=== PATIENT | male | born 1995 | race Caucasian/White ===

== ENCOUNTER 2020-05-03 13:45 | Emergency (ER) | payer SELFPAY ==
[2020-05-03 13:47] VITALS: BP 151/79; PULSE 75; RESP 16; TEMP 36.9; O2SAT 98; BMI 26.6
== END 2020-05-03 18:37 | disposition left against medical advice (07) ==
LOC: HO.ED 18:35
PROVIDERS: Emergency Provider Emergency Medicine
DX: R10.9 Unspecified abdominal pain (principal)
CPT/HCPCS: 99281; 99282

== ENCOUNTER 2021-11-17 10:52 | Emergency (ER) | payer SELFPAY ==
--- NOTE | ~2021-11-17 | XR_ITS ---
EXAMINATION: PORTABLE CHEST 1 VIEW CLINICAL INFORMATION: SOB . COMPARISON: No recent pertinent prior studies are available for comparison. TECHNIQUE: Portable frontal view of the chest was obtained. FINDINGS: The lungs are mildly hypoexpanded. No focal infiltrate, effusion, edema, or pneumothorax. Cardiac and mediastinal silhouettes are within normal limits for technique. No acute bony abnormality seen. XR/XR chest 1V IMPRESSION: No evidence of acute disease.
--- NOTE | ~2021-11-17 | CT_ITS ---
EXAMINATION: CT HEAD WITHOUT CONTRAST CLINICAL INFORMATION: Headache and dizziness COMPARISON: None TECHNIQUE: Contiguous axial imaging was performed from the skull base to vertex without intravenous administration of contrast. This CT examination was performed using dose optimization techniques as appropriate, variously including the following: *Automated exposure control *Adjustment of mA and/or kV according to patient size (this includes techniques or standardized protocols for targeted exams where dose is matched to indication/reason for exam; i.e. extremities or head) *Use of iterative reconstruction technique DLP: 687 mGy-cm FINDINGS: There is no evidence of acute intracranial hemorrhage or territorial infarction. No abnormal mass effect or midline shift is seen. Villegas to white matter differentiation is well preserved. No extra-axial fluid collections are identified. The ventricles are normal in size. There is no abnormal attenuation within the brain parenchyma. The osseous structures and soft tissues are normal. The mastoid air cells and visualized portions of the paranasal sinuses are well aerated. CT/CT head/brain wo con IMPRESSION: No acute intracranial hemorrhage or edematous large vessel territorial infarction..
--- NOTE | 2021-11-17 10:54 | ECG_ITS ---
Test Reason : chest pain Blood Pressure : / mmHG Vent. Rate : 065 BPM Atrial Rate : 065 BPM P-R Int : 148 ms QRS Dur : 086 ms QT Int : 400 ms P-R-T Axes : 040 050 023 degrees QTc Int : 416 ms Normal sinus rhythm with sinus arrhythmia Normal ECG No previous ECGs available Referred By: Generic ED Physician Electronically Signed By:REYMUNDO ARGUETA
[2021-11-17 10:57] VITALS: BP 143/89; PULSE 66; RESP 18; TEMP 37; O2SAT 100; BMI 29.0
[2021-11-17 11:10] LABS: MANUAL DIFF FLAG NO
[2021-11-17 11:13] LABS: Basophils Absolute Auto 0.1 X10*3/uL (0.0-0.2); Basophils Percent Auto 0.9 % (0-2); Eosinophils Absolute Auto 0.4 X10*3/uL (0.0-0.4); Eosinophils Percent Auto 6.5 % (0-4); Hematocrit 42.9 % (42.0-52.0); Hemoglobin 14.9 g/dl (14.0-18.0); Imm Gran Abs Auto 0.01 X10*3/uL (0.00-0.03); Imm Gran Pct Auto 0.2 % (0.0-0.4); Lymphocytes Absolute Auto 2.5 X10*3/uL (1.2-4.9); Lymphocytes Percent Auto 46.6 % (20-40); Mean Corpuscular HGB Conc 34.7 g/dl (31.0-36.0); Mean Corpuscular Hemoglobin 31.4 pg (27.0-33.0); Mean Corpuscular Volume 90.3 fL (80.0-98.0); Mean Platelet Volume 11.2 fL (9.4-12.4); Monocytes Absolute Auto 0.4 X10*3/uL (0.1-1.2); Monocytes Percent Auto 6.7 % (2-11); Neutrophils Absolute Auto 2.1 x10*3/uL (2.0-8.3); Neutrophils Percent Auto 39.1 % (45-73); Platelet Count 162 X10*3/uL (160-400); Red Blood Count 4.75 X10*6/uL (4.60-5.80); Red Cell Distribution Width 12.3 % (11.0-16.0); White Blood Count 5.4 X10*3/uL (4.8-10.8)
[2021-11-17 11:28] LABS: Alanine Aminotransferase 15 U/L (0-40); Albumin Level 4.2 g/dL (3.5-5.0); Alkaline Phosphatase 78 U/L (39-117); Anion Gap 9 (12-20); Aspartate Amino Transferase 18 U/L (5-37); Bilirubin Total 0.7 mg/dL (0.0-1.0); Blood Urea Nitrogen 11 mg/dL (9-16); Calcium 8.7 mg/dL (8.4-10.2); Carbon Dioxide 25 mmol/L (22-29); Chloride 108 mmol/L (96-108); Estimated Glomerular Filt Rate > 60; Glucose Random 98 mg/dL (60-115); Potassium 3.9 mmol/L (3.3-5.1); Sodium 138 mmol/L (135-145); Total Protein 6.9 g/dL (6.5-8.0)
[2021-11-17 11:30] LABS: Troponin-I High Sensitivity < 3.5 ng/L (<3.5-35.0)
[2021-11-17 16:28] VITALS: BP 135/91; PULSE 54; RESP 18; TEMP 36.9; O2SAT 99
--- NOTE | 2021-11-17 17:45 | ED_ITS ---
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 Patient feel dizziness (room spinning around him) also been complaining of frontal headache that started 5 days ago, the dizziness is worsening with changing position or moving his head from side to side, no chest pain. Patient also been having shortness of breath with no coughing, no recent travel, no lower extremity swelling or tenderness. No sick contacts, patient was outside in the sun and hot weather yesterday. Related Data Previous Rx's Medication Instructions Recorded amoxicillin 500 mg-potassium 1 tab PO BID #20 tabs 11/17/21 clavulanate 125 mg tablet (Augmentin) prednisone 20 mg tablet 20 mg PO BID #10 tabs 11/17/21 Allergies Allergy/AdvReac Type Severity Reaction Status Date / Time No Known Allergies Allergy Verified 05/03/20 13:50 Review of Systems Review of Systems: All other systems are reviewed and are negative Constitutional: Reports as per HPI and Reports no additional constitutional complaints Eyes: Reports as per HPI and Reports no additional eye complaints Reports system reviewed and no additional complaints, except as documented Cardiovascular: Reports as per HPI and Reports no additional cardiovascular complaints Respiratory: Reports as per HPI and Reports no additional respiratory complaints Gastrointestinal: Reports as per HPI and Reports no additional gastrointestinal complaints Genitourinary: Reports no additional female genitourinary complaints Musculoskeletal: Reports no additional musculoskeletal complaints Skin/Breast: Reports system reviewed and no additional complaints, except as docu Psychiatric: Reports no additional psychiatric complaints Endocrine: Reports no additional endocrine complaints Hematologic/Lymphatic: Reports no additional hematologic/lymphatic complaints Allergic/Immunologic: Reports no additional allergic/immunologic complaints Reports system reviewed and no additional complaints, except as documented and Reports Abnormal speech present Physical Exam ED Vital Signs: Vital Signs - 24 hr 11/17/21 10:57 11/17/21 16:28 Temperature 98.6 F 98.5 F Pulse Rate 66 54 Respiratory Rate 18 18 Blood Pressure 143/89 H 135/91 H Pulse Oximetry 100 99 Oxygen Delivery Method Room Air BMI result Body Mass Index 29.0 Vital signs have been reviewed as appeared to be correct. Blood pressure normal. Heart rate normal. Respiration rate normal. Temperature normal. Oxygen saturation normal. Appearance: Alert. Oriented X3. No acute distress. Head: Normal external exam. Normocephalic. Atraumatic. No Tyler signs noted. No raccoon eyes noted Eyes: PERRLA. EOMI. Conjunctiva and sclera normal. Eyelids normal. ENT: TM's Normal. Pharynx normal. Uvula midline. Left frontal sinus tenderness to percussion. Dry mucous membranes. No trismus noted. No drooling noted. No muffled voice noted. Neck: Normal inspection. Neck supple. FROM. No adenopathy. Thyroid Normal. No meningeal signs. No neck mass noted. CVS: Normal heart rate and rhythm. Heart sound normal. No murmurs noted. Pulses normal throughout. Respiratory: No respiratory distress. Painless inspiration. Breath sounds normal. No wheezes/rales/rhonchi noted. Chest nontender. No accessory muscle usage noted or decreased air movement noted. Abdomen: Soft and nontender. Bowel sounds normal in all 4 quadrants. No distention noted. No organomegaly noted. No visible injury noted. Back: No CVA tenderness. Full range of motion noted. Skin: Skin warm and dry. Normal skin color. Normal skin turgor. No rashes/lesions/lacerations noted. Extremities: No lower extremity edema. Extremities exhibit normal range of motion. Extremities nontender. Neuro: Oriented X 3. Cranial nerve exam: II-XII are grossly intact No motor deficit. No sensory deficit. Reflexes normal. Course Course Course Narrative: 26-year-old male came in for evaluation of 5 days of headache and being dizzy, patient was exposed to sun and extreme hot weather for a whole day yesterday. Physical exam is consistent with acute left frontal sinusitis will start the patient on Augmentin and short course of prednisone. And encouraged to drink plenty of fluids. Medical Decision Making Lab Data Lab results reviewed: Yes I reviewed the patient's lab results. Result diagrams: 11/17/21 11:07 11/17/21 11:07 Labs: Lab Results 11/17/21 11/17/21 11/17/21 Range/Units 11:07 11:07 11:07 WBC 5.4 (4.8-10.8) X10*3/uL RBC 4.75 (4.60-5.80) X10*6/uL Hgb 14.9 (14.0-18.0) g/dl Hct 42.9 (42.0-52.0) % MCV 90.3 (80.0-98.0) fL MCH 31.4 (27.0-33.0) pg MCHC 34.7 (31.0-36.0) g/dl RDW 12.3 (11.0-16.0) % Plt Count 162 (160-400) X10*3/uL MPV 11.2 (9.4-12.4) fL Immature Gran % (Auto) 0.2 (0.0-0.4) % Neut % (Auto) 39.1 L (45-73) % Lymph % (Auto) 46.6 H (20-40) % Hall % (Auto) 6.7 (2-11) % Eos % (Auto) 6.5 H (0-4) % Baso % (Auto) 0.9 (0-2) % Lymph # (Auto) 2.5 (1.2-4.9) X10*3/uL Hall # (Auto) 0.4 (0.1-1.2) X10*3/uL Eos # (Auto) 0.4 (0.0-0.4) X10*3/uL Baso # (Auto) 0.1 (0.0-0.2) X10*3/uL Abs Immat Gran (auto) 0.01 (0.00-0.03) X10*3/uL Absolute Neuts (auto) 2.1 (2.0-8.3) x10*3/uL Absolute Nucleated RBC 0.000 (0.0-0.012) X10*3/uL Nucleated RBC % (auto) 0.0 (0.0-0.2) /100WBC D-Dimer High Sensitivty NG/ML Sodium 138 (135-145) mmol/L Potassium 3.9 (3.3-5.1) mmol/L Chloride 108 (96-108) mmol/L Carbon Dioxide 25 (22-29) mmol/L Anion Gap 9 L (12-20) BUN 11 (9-16) mg/dL Creatinine 0.97 (0.5-1.4) mg/dL Estim Creat Clear Calc 108.0 Estimated GFR > 60 Random Glucose 98 (60-115) mg/dL Calcium 8.7 (8.4-10.2) mg/dL Total Bilirubin 0.7 (0.0-1.0) mg/dL AST 18 (5-37) U/L ALT 15 (0-40) U/L Alkaline Phosphatase 78 (39-117) U/L Troponin I High Sens < 3.5 (<3.5-35.0) ng/L Total Protein 6.9 (6.5-8.0) g/dL Albumin 4.2 (3.5-5.0) g/dL COVID-19 (MAXIMILIAN) (Negative) COVID-19 Clin Com 11/17/21 11/17/21 11/17/21 Range/Units 18:30 18:34 18:34 WBC (4.8-10.8) X10*3/uL RBC (4.60-5.80) X10*6/uL Hgb (14.0-18.0) g/dl Hct (42.0-52.0) % MCV (80.0-98.0) fL MCH (27.0-33.0) pg MCHC (31.0-36.0) g/dl RDW (11.0-16.0) % Plt Count (160-400) X10*3/uL MPV (9.4-12.4) fL Immature Gran % (Auto) (0.0-0.4) % Neut % (Auto) (45-73) % Lymph % (Auto) (20-40) % Hall % (Auto) (2-11) % Eos % (Auto) (0-4) % Baso % (Auto) (0-2) % Lymph # (Auto) (1.2-4.9) X10*3/uL Hall # (Auto) (0.1-1.2) X10*3/uL Eos # (Auto) (0.0-0.4) X10*3/uL Baso # (Auto) (0.0-0.2) X10*3/uL Abs Immat Gran (auto) (0.00-0.03) X10*3/uL Absolute Neuts (auto) (2.0-8.3) x10*3/uL Absolute Nucleated RBC (0.0-0.012) X10*3/uL Nucleated RBC % (auto) (0.0-0.2) /100WBC D-Dimer High Sensitivty < 150 NG/ML Sodium (135-145) mmol/L Potassium (3.3-5.1) mmol/L Chloride (96-108) mmol/L Carbon Dioxide (22-29) mmol/L Anion Gap (12-20) BUN (9-16) mg/dL Creatinine (0.5-1.4) mg/dL Estim Creat Clear Calc Estimated GFR Random Glucose (60-115) mg/dL Calcium (8.4-10.2) mg/dL Total Bilirubin (0.0-1.0) mg/dL AST (5-37) U/L ALT (0-40) U/L Alkaline Phosphatase (39-117) U/L Troponin I High Sens < 3.5 (<3.5-35.0) ng/L Total Protein (6.5-8.0) g/dL Albumin (3.5-5.0) g/dL COVID-19 (MAXIMILIAN) Negative (Negative) COVID-19 Clin Com See Note Imaging Data Chest x-ray: Attestation: I personally reviewed and interpreted this imaging study as follows: Radiologist's impression: No evidence of acute disease. CT scan - head: Attestation: I personally reviewed and interpreted this imaging study as follows: Radiologist's impression: No acute pathology. Discharge Plan Discharge Clinical Impression: Sinusitis Patient Disposition: Home, Self-Care Instructions: Sinusitis (ED) Prescriptions: New amoxicillin-pot clavulanate [Augmentin] 500-125 mg tablet 1 tab PO BID Qty: 20 0RF prednisone 20 mg tablet 20 mg PO BID Qty: 10 0RF Referrals: Physician,None [Primary Care Provider] -
[2021-11-17] MEDS: Acetaminophen 325 MG TABLET 650 MG PO (18:47)
[2021-11-17] MEDS: 0.9 % Sodium Chloride 1,000 ML 999 ML IV (18:49)
[2021-11-17 18:54] LABS: COVID-19 Test Negative (Negative)
[2021-11-17 18:56] LABS: D Dimer High Sensitivity < 150 NG/ML
[2021-11-17 19:02] LABS: Troponin-I High Sensitivity < 3.5 ng/L (<3.5-35.0)
[2021-11-17 19:42] VITALS: BP 146/90; PULSE 59; RESP 18; O2SAT 99
[2021-11-17 20:34] VITALS: BP 123/78; PULSE 49; RESP 16; TEMP 36.9; O2SAT 99
== END 2021-11-17 21:34 | disposition home or self-care (01) ==
PROVIDERS: Emergency Provider Emergency Medicine
DX: J32.9 Chronic sinusitis, unspecified (principal); R07.89 Other chest pain; R55 Syncope and collapse; R51.9 Headache, unspecified; R06.02 Shortness of breath; Z20.822 Contact with and (suspected) exposure to COVID-19; Z79.899 Other long term (current) drug therapy
CPT/HCPCS: 36415; 70450; 71045; 80053; 84484; 85025; 85379; 87635; 93005; 96360; 99284

== ENCOUNTER 2024-02-14 17:54 | Emergency (ER) | payer MEDICAID, OTHER, SELFPAY ==
--- NOTE | ~2024-02-14 | CT_ITS ---
EXAM: CT scan of the head and cervical spine. INDICATION: headache, pain TECHNIQUE: A noncontrast CT scan was performed from the skull base to the vertex. A noncontrast CT scan of the cervical spine was performed from the base of the skull through T1 at 2.5 mm and 1.25 mm collimation. Coronal and sagittal reformats were obtained at the acquisition workstation. This CT examination was performed using dose optimization techniques as appropriate, variously including the following: *Automated exposure control *Adjustment of mA and/or kV according to patient size (this includes techniques or standardized protocols for targeted exams where dose is matched to indication/reason for exam; i.e. extremities or head) *Use of iterative reconstruction technique DLP: 679 and 446 mGy-cm COMPARISON: 11/17/2021 FINDINGS: Head: There is no evidence of acute intracranial hemorrhage or territorial infarction. Villegas-white matter differentiation is preserved. No abnormal mass effect or midline shift. No extra-axial fluid collections. No abnormal attenuation is demonstrated within the brain parenchyma. The ventricles and sulcal spaces are proportional without hydrocephalus. Proportional prominence of the ventricles and sulcal spaces. No acute osseous or soft tissue abnormalities. The mastoid air cells and visualized portions of the paranasal sinuses are well aerated. Cervical Spine: The atlantooccipital and atlantoaxial articulations remain well aligned. Reversal of the normal cervical lordosis. Otherwise, there is anatomic alignment of the vertebral bodies and posterior elements. No evidence of acute fracture or subluxation. The vertebral body heights and disc spaces are maintained. There is no prevertebral soft tissue swelling. The thyroid gland and remaining cervical soft tissues are normal in appearance. The lung apices demonstrate no abnormalities. CT/CT cervical spine wo IV con IMPRESSION: No acute intracranial pathology . No acute cervical spine findings. Electronically signed by: Roosevelt Washington MD 02/14/2024 07:38 PM EDT
[2024-02-14 17:58] VITALS: BP 122/69; PULSE 70; RESP 18; TEMP 37.1; O2SAT 96; BMI 27.0
--- NOTE | 2024-02-14 18:17 | ED.NEUROSD ---
HPI - Neuro Symptoms/Deficit General Chief Complaint: Neuro Symptoms/Deficit Stated Complaint: right facial numbness ,back pain head pain Time Seen by Provider: 02/15/24 00:17 Source: patient Mode of arrival: ambulatory Limitations: no limitations History of Present Illness ED Provider: daniela CONTRERAS Narrative: Patient no significant past medical history complaining of intermittent right facial droop and tingling sensation lasting for few minutes for last 3 days no tinnitus no other weakness patient had a CT scan of the head and C-spine was negative prior to my evaluation labs were stable Related Data Previous Rx's ?Medication ?Instructions ?Recorded amoxicillin 500 mg-potassium 1 tab PO BID #20 tabs 11/17/21 clavulanate 125 mg tablet (Augmentin) meclizine 25 mg tablet 25 mg PO BID PRN motion sickness 11/17/21 #20 tabs prednisone 20 mg tablet 20 mg PO BID #10 tabs 11/17/21 prednisone 20 mg tablet 60 mg (3 x 20 mg) PO DAILY #21 tabs 02/15/24 valacyclovir 1 gram tablet 1,000 mg PO TID 7 days #21 tabs 02/15/24 (Valtrex) Allergies Allergy/AdvReac Type Severity Reaction Status Date / Time No Known Allergies Allergy Verified 02/14/24 18:08 Review of Systems Review of Systems: Yes all other systems are reviewed and are negative PMFSH Social History Social History Alcohol intake: current Alcohol intake frequency: holidays/special occasions only Smoked in Last 30 Days: Yes Use of substances other than those prescribed or required for medical reasons: No Advance Directives: No Advance Directives Information Provided: No Physical Exam Vital Signs: Vital Signs: Last Vital Signs Temp 98.0 F 02/14/24 23:37 Pulse 68 02/14/24 23:37 Resp 16 02/14/24 23:37 BP 132/71 02/14/24 23:37 Pulse Ox 96 02/14/24 23:37 O2 Del Method Room Air 02/14/24 23:37 BMI result Body Mass Index 27.0 Appearance: Alert. Oriented X3. No acute distress. Eyes: PERRLA, No Nystagmus ENT: Pharynx normal. Oral Mucosa moist Neck: Normal inspection. Neck supple. CVS: Normal heart rate and rhythm. Pulses normal. Respiratory: No respiratory distress. Equal air entry bilateral, no wheezing/rales/rhonchi Abdomen: Soft and nontender. Bowel sounds are present, no mass palpable, no CVA tenderness Skin: Skin warm and dry. Normal skin color. Normal skin turgor. Extremities: No lower extremity edema. No calf tenderness Neuro: Oriented X 3. No motor deficit. No sensory deficit.No cerebellar signs , cranial nerves II-XII intact Course Course Course Narrative: RME performed by Rosemarie Hauser PA-C. Patient is a 28 year old assigned male at presenting to the emergency department with a headache and shoulder pain. Patient states that over the last 2 days he has had a headache and these other symptoms. Detailed physical exam and review of systems are deferred to the camp recreation specialist. EKG, labs, imaging, and swabs ordered. Patient placed back in the waiting room pending room availability and results. Medical Decision Making Medical Decision Making [facility] Narrative: Patient has intermittent right facial droop as time of examination there was no deficit but patient had subjective tingling feeling likely patient has had intermittent Cantu's palsy will check for Lyme titer for now will prescribe prednisone and Valtrex patient denied any tick bite in the past Lab Data [facility] Lab Attestation statement: I reviewed the patient's lab results. 02/14/24 18:50 02/14/24 18:50 Labs: Lab Results 02/14/24 Range/Units 18:50 WBC 7.2 (4.8-10.8) X10*3/uL RBC 4.98 (4.60-5.80) X10*6/uL Hgb 15.8 (14.0-18.0) g/dl Hct 44.6 (42.0-52.0) % MCV 89.6 (80.0-98.0) fL MCH 31.7 (27.0-33.0) pg MCHC 35.4 (31.0-36.0) g/dl RDW 11.9 (11.0-16.0) % Plt Count 185 (160-400) X10*3/uL MPV 11.1 (9.4-12.4) fL Immature Gran % (Auto) 0.1 (0.0-0.4) % Neut % (Auto) 51.0 (45-73) % Lymph % (Auto) 39.2 (20-40) % [place] % (Auto) 6.2 (2-11) % Eos % (Auto) 2.5 (0-4) % Baso % (Auto) 1.0 (0-2) % Lymph # (Auto) 2.8 (1.2-4.9) X10*3/uL [place] # (Auto) 0.5 (0.1-1.2) X10*3/uL Eos # (Auto) 0.2 (0.0-0.4) X10*3/uL Baso # (Auto) 0.1 (0.0-0.2) X10*3/uL Abs Immat Gran (auto) 0.01 (0.00-0.03) X10*3/uL Absolute Neuts (auto) 3.7 (2.0-8.3) x10*3/uL Absolute Nucleated RBC 0.000 (0.0-0.012) X10*3/uL Nucleated RBC % (auto) 0.0 (0.0-0.2) /100WBC PT 11.4 (10.9-12.4) SEC INR 1.0 (0.9-1.1) APTT 29.0 (26.0-36.8) SEC Sodium 141 (135-145) mmol/L Potassium 3.6 (3.3-5.1) mmol/L Chloride 108 (96-108) mmol/L Carbon Dioxide 26 (22-29) mmol/L Anion Gap 11 L (12-20) BUN 17 H (9-16) mg/dL Creatinine 0.95 (0.5-1.4) mg/dL Estim Creat Clear Calc 108.2 Estimated GFR > 60 Random Glucose 103 (60-115) mg/dL Calcium 9.5 D (8.4-10.2) mg/dL Magnesium 1.9 (1.6-2.6) mg/dL Total Bilirubin 0.6 (0.0-1.0) mg/dL AST 22 (5-37) U/L ALT 20 (0-40) U/L Alkaline Phosphatase 93 (39-117) U/L Troponin I High Sens < 2.7 (<3.5-35.0) ng/L Total Protein 7.1 (6.5-8.0) g/dL Albumin 4.2 (3.5-5.0) g/dL Urine Color Yellow Urine Appearance Clear Urine pH 6.0 (5.0-9.0) Ur Specific [place] >= 1.030 H (1.005-1.025) Urine Protein Negative (Neg-Trace) mg/dL Urine Glucose (UA) Negative (Negative) mg/dL Urine Ketones Negative (Negative) mg/dL Urine Blood Negative (Negative) Urine Nitrite Negative (Negative) Ur Leukocyte Esterase Negative (Negative) Influenza Type A (PCR) NEGATIVE (Negative) Influenza Type B (PCR) NEGATIVE (Negative) RSV RNA Qual (PCR) NEGATIVE (Negative) SARS-CoV-2 RNA (RT-PCR) NEGATIVE (Negative) Discharge Plan Discharge Clinical Impression: Cantu's palsy Patient Disposition: Home, Self-Care Instructions: Cantu Palsy (ED) Additional Instructions: Likely you have intermittent Cantu's palsy Take medication as prescribed Report to ER if worsening of the symptoms Prescriptions: New prednisone 20 mg tablet 60 mg PO DAILY Qty: 21 0RF valacyclovir [Valtrex] 1 gram tablet 1,000 mg PO TID 7 Days Qty: 21 0RF No Action amoxicillin-pot clavulanate [Augmentin] 500-125 mg tablet 1 tab PO BID Qty: 20 0RF prednisone 20 mg tablet 20 mg PO BID Qty: 10 0RF meclizine 25 mg tablet 25 mg PO BID PRN (Reason: motion sickness) Qty: 20 0RF Print Language: Kiswahili
--- NOTE | 2024-02-14 18:18 | ECG_ITS ---
Test Reason : pain Blood Pressure : / mmHG Vent. Rate : 062 BPM Atrial Rate : 062 BPM P-R Int : 156 ms QRS Dur : 088 ms QT Int : 390 ms P-R-T Axes : 031 046 003 degrees QTc Int : 395 ms Normal sinus rhythm Nonspecific T wave abnormality Abnormal ECG When compared with ECG of 17-NOV-2021 10:58, Nonspecific T wave abnormality now evident in Anterolateral leads Referred By: Rosemarie Hauser Electronically Signed By:Jere Licona
[2024-02-14 18:59] LABS: Basophils Absolute Auto 0.1 X10*3/uL (0.0-0.2); Eosinophils Absolute Auto 0.2 X10*3/uL (0.0-0.4); Eosinophils Percent Auto 2.5 % (0-4); Hematocrit 44.6 % (42.0-52.0); Hemoglobin 15.8 g/dl (14.0-18.0); Imm Gran Abs Auto 0.01 X10*3/uL (0.00-0.03); Imm Gran Pct Auto 0.1 % (0.0-0.4); Lymphocytes Absolute Auto 2.8 X10*3/uL (1.2-4.9); Lymphocytes Percent Auto 39.2 % (20-40); MANUAL DIFF FLAG NO; Mean Corpuscular HGB Conc 35.4 g/dl (31.0-36.0); Mean Corpuscular Hemoglobin 31.7 pg (27.0-33.0); Mean Corpuscular Volume 89.6 fL (80.0-98.0); Mean Platelet Volume 11.1 fL (9.4-12.4); Monocytes Absolute Auto 0.5 X10*3/uL (0.1-1.2); Monocytes Percent Auto 6.2 % (2-11); Neutrophils Absolute Auto 3.7 x10*3/uL (2.0-8.3); Platelet Count 185 X10*3/uL (160-400); Red Blood Count 4.98 X10*6/uL (4.60-5.80); Red Cell Distribution Width 11.9 % (11.0-16.0); White Blood Count 7.2 X10*3/uL (4.8-10.8)
[2024-02-14 19:00] LABS: Appearance Urine Clear; Color Urine Yellow; Glucose Urine UA Negative (Negative); Leukocyte Esterase Urine Negative (Negative); Nitrite Urine Negative (Negative); Specific Gravity - Urine >= 1.030 (1.005-1.025); Urine Blood Negative (Negative); Urine Ketones Negative (Negative); Urine Protein Negative (Neg-Trace)
[2024-02-14 19:08] LABS: Prothrombin Time 11.4 SEC (10.9-12.4)
[2024-02-14 19:15] LABS: Alanine Aminotransferase 20 U/L (0-40); Albumin Level 4.2 g/dL (3.5-5.0); Alkaline Phosphatase 93 U/L (39-117); Anion Gap 11 (12-20); Aspartate Amino Transferase 22 U/L (5-37); Bilirubin Total 0.6 mg/dL (0.0-1.0); Blood Urea Nitrogen 17 mg/dL (9-16); Calcium 9.5 mg/dL (8.4-10.2); Carbon Dioxide 26 mmol/L (22-29); Chloride 108 mmol/L (96-108); Creatinine Clr Calc Pharmacy 108.2; Estimated Glomerular Filt Rate > 60; Glucose Random 103 mg/dL (60-115); Magnesium 1.9 mg/dL (1.6-2.6); Potassium 3.6 mmol/L (3.3-5.1); Sodium 141 mmol/L (135-145); Total Protein 7.1 g/dL (6.5-8.0)
[2024-02-14 19:24] LABS: Troponin-I High Sensitivity < 2.7 ng/L (<3.5-35.0)
[2024-02-14 19:37] LABS: Influenza A PCR NEGATIVE (Negative); Influenza B PCR NEGATIVE (Negative); Resp Syncy Virus RNA Qual PCR NEGATIVE (Negative); SARS COV2 PCR INHOUSE NEGATIVE (Negative)
[2024-02-14 23:37] VITALS: BP 132/71; PULSE 68; RESP 16; TEMP 36.7; O2SAT 96
[2024-02-15] MEDS: predniSONE 20 MG TABLET 60 MG PO (00:49)
[2024-02-15] MEDS: valACYclovir HCL 1,000 MG TABLET 1000 MG PO (00:49)
[2024-02-15 00:54] VITALS: BP 132/71; PULSE 68; RESP 16; TEMP 36.7; O2SAT 96
[2024-02-17 01:28] LABS: Lyme Abs Screen <0.90 index
== END 2024-02-15 01:04 | disposition home or self-care (01) ==
PROVIDERS: Physician Assistant Medical; Emergency Provider Internal Medicine
DX: G51.0 Bell's palsy (principal); R51.9 Headache, unspecified; M25.519 Pain in unspecified shoulder
CPT/HCPCS: 0241U; 36415; 70450; 72125; 80053; 81003; 83735; 84484; 85025; 85610; 85730; 86617; 86618; 93005; 99284

== ENCOUNTER → 2024-02-14 18:18 | Outpatient (BNV) | payer MEDICAID, SELFPAY | PROVIDERS: Emergency Provider Internal Medicine; Visit Provider Internal Medicine Cardiovascular Disease | DX: R94.31 Abnormal electrocardiogram [ECG] [EKG] (principal) | CPT/HCPCS: 93010 ==